=== PATIENT | female | born 1985 | race Caucasian/White ===

== ENCOUNTER 2020-07-05 19:57 | Emergency (ER) | payer BC ==
[~2020-07-05] VITALS: Ht 162.6 cm; Wt 86.2 kg
--- NOTE | 2020-07-05 20:29 | PHYS DOC ---
Past History Past Medical History: Migraines (ANA M YEUNG APRN) Adult General Chief Complaint Chief Complaint: SHORTNESS OF BREATH HPI HPI Patient is a 35-year-old female patient with history of migraine headaches presenting to the ED today complaining of what she describes as "massive" right- sided headache with tingling to her face that began 3 days ago after she got exposed to COVID-19 from the . Patient denies anything specifically relieving her headache, she states she has tried ibuprofen 800 mg daily with no relief. She states lights make the headache worse. She is also complaining of shortness of breath/trouble breathing that began today. Patient denies any fever, coughing, nasal congestion. Denies any chest pain. Denies any chance she is , she states she had a hysterectomy and is not on any hormones. She is requesting a CT of the head. She states this will give her peace of mind she is not having a stroke. She states she was tested for COVID-19 today (ANA M YEUNG APRN) Review of Systems Review of Systems Constitutional: Denies fever or chills [] Eyes: Denies change in visual acuity, redness, or eye pain [] HENT: Denies nasal congestion or sore throat [] Respiratory: Reports shortness of breath. Denies cough Cardiovascular: No additional information not addressed in HPI [] GI: Denies abdominal pain, nausea, vomiting, bloody stools or diarrhea [] : Denies dysuria or hematuria [] Musculoskeletal: Denies back pain or joint pain [] Integument: Denies rash or skin lesions [] Neurologic: Reports headache and right-sided facial pain., denies focal weakness or sensory changes [] All other systems were reviewed and found to be within normal limits, except as documented in this note. (ANA M YEUNG APRN) Physical Exam Physical Exam Constitutional: Well developed, well nourished, no acute distress, non-toxic appearance. [] HENT: Normocephalic, atraumatic, bilateral external ears normal, oropharynx m oist, no oral exudates, nose normal. [] Eyes: PERRLA, EOMI, conjunctiva normal, no discharge. [] Neck: Normal range of motion, no tenderness, supple, no stridor. [] Cardiovascular:Heart rate regular rhythm, no murmur [] Lungs & Thorax: Bilateral breath sounds clear to auscultation [] Abdomen: Bowel sounds normal, soft, no tenderness, no masses, no pulsatile masses. [] Skin: Warm, dry, no erythema, no rash. [] Back: No tenderness, no CVA tenderness. [] Extremities: No tenderness, no cyanosis, no clubbing, ROM intact, no edema. [] Neurologic: Alert and oriented X 3, normal motor function, normal sensory function, no focal deficits noted. Cranial nerves II through XII intact [] Psychologic: Affect normal, judgement normal, mood normal. [] (ANA M YEUNG APRN) EKG EKG [] (ANA M YEUNG APRN) Radiology/Procedures Radiology/Procedures []PROCEDURE: CT HEAD WO CONTRAST CT HEAD WO CONTRAST Clinical indications: Headache and facial tingling. COMPARISON: None available Technique: Noncontrast axial cross sectional scanning of the head was performed. PQRS compliance Statement One or more of the following individualized dose reduction techniques were utilized for this study: 1. Automated exposure control 2. Adjustment of the mA and/or kV according to patient size 3. Use of iterative reconstruction technique Findings: No acute intracranial hemorrhage or midline shift or mass-effect or hydrocephalus or extra-axial fluid collection is seen. No focal hypodense area or sulci effacement is seen to indicate an acute infarct or edema radiographically. No skull fracture or pneumocephalus is seen. No opacification of the mastoid sinuses or the middle ear cavities or the paranasal sinuses is seen. The maxillary sinuses are not completely seen in this study. IMPRESSION: No acute intracranial abnormality is seen. Electronically signed by: Ted Nguyễn MD (07/05/2020 8:43 PM) [id number] DICTATED AND SIGNED BY: TED NGUYỄN MD DATE: 07/05/202042 CC: ANA M YEUNG APRN; TENZIN HARRINGTON [facility] ~MTH0 0 PROCEDURE: CHEST PA & LATERAL EXAM: Chest, 2 views. HISTORY: Fever. COMPARISON: None. FINDINGS: 2 views of the chest are obtained. There is suspected bilateral lower lobe atelectasis. There is no consolidation, pleural effusion or pneumothorax. IMPRESSION: No acute pulmonary finding. Electronically signed by: Syl Juan MD (07/05/2020 8:37 PM) [facility] DICTATED AND SIGNED BY: SYL JUAN MD DATE: 07/05/202036 CC: ANA M YEUNG APRN; TENZIN HARRINGTON ~MTH0 0 (ANA M YEUNG APRN) Heart Score Risk Factors: Risk Factors: DM, Current or recent (<one month) smoker, HTN, HLP, family history of CAD, obesity. Risk Scores: Risk Factors: DM, Current or recent (<one month) smoker, HTN, HLP, family history of CAD, obesity. (ANA M YEUNG APRN) Course & Med Decision Making Course & Med Decision Making Pertinent Labs and Imaging studies reviewed. (See chart for details) This is a 35-year-old female patient presenting to the ED today complaining of a migraine headache that began 3 days ago after she got exposed to COVID-19. Patient is also complaining of shortness of breath. O2 sats in the ED is 99% an d above on room air. She is afebrile. Patient states she was already tested for COVID-19 today, results pending. CT of the head is negative for any acute findings. Chest x-ray interpreted by radiologist as negative. Discharge to home. Instructed to quarantine herself until she gets results for her COVID-19 test. Provided supportive care measures including rest, pushing fluids, wearing a mask around other people. (ANA M YEUNG APRN) Dragon Disclaimer Dragon Disclaimer This electronic medical record was generated, in whole or in part, using a voice recognition dictation system. (ANA M YEUNG APRN) Departure Departure: Impression: Primary Impression: Migraine headache Additional Impression: Person under investigation for COVID-19 Disposition: 01 DC HOME SELF CARE/HOMELESS Condition: STABLE Referrals: TENZIN HARRINGTON (PCP) Follow-up in the next seven days Patient Instructions: Migraine Headache Additional Instructions: You were evaluated in the emergency room, your CAT scan of the head as well as chest x-ray were negative for any acute findings. Please quarantine yourself until you get your COVID-19 results. Rest, push fluids. Wear mask around other people. Scripts Promethazine Hcl (PROMETHAZINE HCL) 25 Mg Tablet 1 TAB PO PRN Q6HRS, #20 TAB Prov: ANA M YEUNG LONG 07/05/20 Prednisone (PREDNISONE) 50 Mg Tablet 1 TAB PO DAILY, #5 TAB Prov: DOUGANA M GATICA LONG 07/05/20 Attending Co-Sign Attending Co-Sign The patient was seen and interviewed as well as examined at the bedside. The chart was reviewed. The case was discussed. Agree with the plan of care. (CHARLES DON MD) Dragon Disclaimer This chart was dictated in whole or in part using Voice Recognition software in a busy, high-work load, and often noisy Emergency Department environment. It may contain unintended and wholly unrecognized errors or omissions. (CHARLES DON MD) Problem Qualifiers Primary Impression: Migraine headache Migraine type: without aura Status migrainosus presence: without status migrainosus Intractability: not intractable Qualified Codes: G43.009 - Migraine without aura, not intractable, without status migrainosus ANA M YEUNG APRN Jul 05, 2020 20:29 CHARLES DON MD Jul 06, 2020 01:10
--- NOTE | 2020-07-05 20:41 | RAD ---
EXAM: Chest, 2 views. HISTORY: Fever. COMPARISON: None. FINDINGS: 2 views of the chest are obtained. There is suspected bilateral lower lobe atelectasis. There is no consolidation, pleural effusion or pneumothorax. IMPRESSION: No acute pulmonary finding. Electronically signed by: Syl Beck MD (07/05/2020 8:37 PM) [facility]
--- NOTE | 2020-07-05 20:47 | RAD ---
CT HEAD WO CONTRAST Clinical indications: Headache and facial tingling. COMPARISON: None available Technique: Noncontrast axial cross sectional scanning of the head was performed. PQRS compliance Statement One or more of the following individualized dose reduction techniques were utilized for this study: 1. Automated exposure control 2. Adjustment of the mA and/or kV according to patient size 3. Use of iterative reconstruction technique Findings: No acute intracranial hemorrhage or midline shift or mass-effect or hydrocephalus or extra-axial fluid collection is seen. No focal hypodense area or sulci effacement is seen to indicate an acute infarct or edema radiographically. No skull fracture or pneumocephalus is seen. No opacification of the mastoid sinuses or the middle ear cavities or the paranasal sinuses is seen. The maxillary sinuses are not completely seen in this study. IMPRESSION: No acute intracranial abnormality is seen. Electronically signed by: Abdi Nguyễn MD (07/05/2020 8:43 PM) [id number]
[2020-07-05] MEDS ORDERED: PRED50TA PO (21:05)
[2020-07-05] MEDS ORDERED: PROM25TA10 PO (21:05)
[2020-07-05] MEDS ORDERED: PROMETHAZINE 25 MG TABLET. PO ONE (21:30)
[2020-07-05] MEDS ORDERED: KETOROLAC 60 MG/2 ML VIAL. IM ONE (21:30)
[2020-07-05] MEDS ORDERED: diphenhydrAMINE HCL 25 MG CAPSULE PO ONE (21:30)
[2020-07-05 21:38] VITALS: BP 136/84
== END 2020-07-05 21:38 | disposition home or self-care (01) ==
LOC: ER 19:57
DX: G43.009 Migraine without aura, not intractable, without status migrainosus (principal); Z20.828 Contact with and (suspected) exposure to other viral communicable diseases
CPT/HCPCS: 70450; 71046; 96372; 99284; J1885; Q0163; Q0169

== ENCOUNTER 2021-01-21 07:51 | Emergency (ER) | payer BC ==
[~2021-01-21] VITALS: Ht 162.6 cm; Wt 90.8 kg
[~2021-01-21 07:51] MED LIST: PRED50TA PO; PROM25TA10 PO
[2021-01-21 08:04] VITALS: BP 131/88
[2021-01-21] MEDS ORDERED: ACETAMINOPHEN 500 MG TABLET PO ONE (08:15)
--- NOTE | 2021-01-21 08:43 | RAD ---
Indications: Rolled right ankle. Pain. Three-view right ankle study: No acute fracture or dislocation or lytic process is seen. The mortise ankle joint is intact. Two-view study right tibia and fibula: No acute fracture or dislocation or lytic process is seen. Three-view right foot study: There is a small mahendra of bone adjacent to the lateral proximal aspect o f the fifth metatarsal bone seen best in the right ankle series. There is normal cortication of the a djacent base of the fifth metatarsal bone with no adjacent bony defect. No associated soft tissue swe lling is seen. Therefore, this does not represent an acute fracture but rather a small accessory ossi fication center. IMPRESSION: No acute fracture. Electronically signed by: Abdi Nguyễn MD (01/21/2021 8:41 AM) [id number]
[2021-01-21] MEDS ORDERED: IBUP600T16 PO (09:18)
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
== END 2021-01-21 09:37 | disposition home or self-care (01) ==
LOC: ER 07:51
DX: S93.401A Sprain of unspecified ligament of right ankle, initial encounter (principal); E05.90 Thyrotoxicosis, unspecified without thyrotoxic crisis or storm; X50.9XXA Other and unspecified overexertion or strenuous movements or postures, initial encounter; Y93.89 Activity, other specified; Y92.89 Other specified places as the place of occurrence of the external cause; Y99.8 Other external cause status
CPT/HCPCS: 29515; 73590; 73610; 73630; 99284

== ENCOUNTER → 2021-03-14 | Outpatient (CLI) | payer BC ==
[~2021-03-14] MED LIST changes: +IBUP600T16 PO
--- NOTE | 2021-03-14 16:46 | RAD ---
EXAM: LUMBAR SPINE 3 VIEWS. HISTORY: Low back pain COMPARISON: None. FINDINGS: Alignment is maintained. Mild wedging at the superior endplate of T12 is likely development al. No fractures are identified. Intervertebral disc heights are maintained. Endplate remodeling sugg ests early degenerative disc disease from L1 through L5, though this can also be a developmental appe arance. IMPRESSION: 1. No fracture or clear degenerative change. Electronically signed by: Venancio Pak MD (03/14/2021 4:44 PM) [id number]
== END ==
LOC: RAD 15:08
PROVIDERS: ATTEND Physician Assistant
DX: M54.5 Low back pain (principal); M79.604 Pain in right leg
CPT/HCPCS: 72100